=== PATIENT | female | born 1990 | race Caucasian/White ===

== ENCOUNTER 2017-02-06 00:25 | Emergency (ER) | payer BC, MEDICAID ==
[~2017-02-06] VITALS: Ht 162.6 cm; Wt 104.1 kg
[2017-02-06 00:25] VITALS: Ht 162.6 cm; Wt 104.1 kg
--- OUTSIDE RECORDS SUMMARY | 2017-02-06 00:30 | XMS REPORT | Referral Summary ---
Author Author [facility] Organization [facility] Address Unknown Phone Unavailable Care Team Providers Care Drill Runner Helper Name Role Phone No PCP, Pt States Primary Care Physician [phone] Encounter VC Date(s): 10/12/16 - 10/12/[address] [facility] [address], [place] [address] Discharge Diagnosis: Leukocytosis Discharge Diagnosis: Cough Discharge Disposition: 01-Home or Self Care Attending Physician: Duncan Alva MD Admitting Physician: Duncan Alva MD Referring Physician: Self Referred, X Vital Signs Most recent to 1 oldest [Reference Range]: Temperature Oral 36.3 degC [35.8-37.3 degC] (10/12/16 2:19 PM) Peripheral Pulse 103 bpm Rate [60-100 bpm] *HI* (10/12/16 2:19 PM) Respiratory Rate 18 br/min [14-20 br/min] (10/12/16 2:19 PM) Blood Pressure 112/73 mmHg [90-140/60-90 mmHg] (10/12/16 2:19 PM) SpO2 98 % (10/12/16 2:19 PM) Problem List Condition Effective Dates Status Health Status Informant Morbid Active patient obesity(Confirmed) (Confirmed) 04/13/16 Active Tobacco use during Active (Confirmed) Tobacco Active patient user(Confirmed) Allergies, Adverse Reactions, Alerts Substance Reaction Severity Status penicillin Active Medications Diflucan 150 mg oral tablet 150 mg 1 tabs, Oral, qWeek, # 2 tabs, 0 Refill(s), 1 tabs Oral qWeek Start Date: 09/19/16 Stop Date: 09/20/17 Status: Ordered Multivitamins with Vitamin B Complex, Vitamin C, Minerals and L- Methylfolate oral capsule 1 caps, Oral, Daily, # 30 caps, 0 Refill(s) Start Date: 09/19/16 Status: Ordered Results Hematology Most recent to 1 oldest [Reference Range]: WBC [4.8-10.8 15.6 10*3/uL 10*3/uL] *HI* (10/12/16 3:11 PM) RBC [4.00-5.20] 4.33 (10/12/16 3:11 PM) Hgb [12.0-16.0 12.7 gm/dL gm/dL] (10/12/16 3:11 PM) Hct [37.0-47.0 %] 36.9 % *LOW* (10/12/16 3:11 PM) MCV [82.0-99.0 fL] 85.2 fL (10/12/16 3:11 PM) MCH [27.0-32.0 pg] 29.3 pg (10/12/16 3:11 PM) MCHC [32.0-36.0 34.4 gm/dL gm/dL] (10/12/16 3:11 PM) RDW [11.5-14.5 %] 13.8 % (10/12/16 3:11 PM) Platelet [150-400 314 10*3/uL 10*3/uL] (10/12/16 3:11 PM) MPV [9.4-12.4 fL] 11.2 fL (10/12/16 3:11 PM) Immature 0.4 % Granulocytes (10/12/16 3:11 PM) [0.0-1.0 %] Neutrophils [51-75 75 % %] (10/12/16 3:11 PM) Lymphocytes [20-46 15 % %] *LOW* (10/12/16 3:11 PM) Monocytes [4-11 %] 7 % (10/12/16 3:11 PM) Eosinophils [0-4 %] 2 % (10/12/16 3:11 PM) Basophils [0-2 %] 0 % (10/12/16 3:11 PM) Neutro Absolute 11.73 [1.90-7.00] *HI* (10/12/16 3:11 PM) Lymph Absolute 2.35 [0.80-3.30] (10/12/16 3:11 PM) [place] Absolute 1.14 [0.30-1.00] *HI* (10/12/16 3:11 PM) Eos Absolute 0.32 [0.00-0.50] (10/12/16 3:11 PM) Baso Absolute 0.02 [0.00-0.20] (10/12/16 3:11 PM) Chemistry Most recent to 1 oldest [Reference Range]: Sodium Lvl [136-144 137 mEq/L mEq/L] (10/12/16 3:11 PM) Potassium Lvl 3.7 mEq/L [3.6-5.1 mEq/L] (10/12/16 3:11 PM) Chloride [99-109 105 mEq/L mEq/L] (10/12/16 3:11 PM) CO2 [22-32 mEq/L] 23 mEq/L (10/12/16 3:11 PM) AGAP [3-20] 9 (10/12/16 3:11 PM) BUN [4-20 mg/dL] 9 mg/dL (10/12/16 3:11 PM) Glucose Lvl [70-100 103 mg/dL mg/dL] *HI* (10/12/16 3:11 PM) Creatinine Lvl 0.56 mg/dL [0.44-1.03 mg/dL] (10/12/16 3:11 PM) eGFR [>60] >60 1 (10/12/16 3:11 PM) Calcium Lvl 8.7 mg/dL [8.6-10.0 mg/dL] (10/12/16 3:11 PM) 1Result Comment: Multiply eGFR results by 1.21 for race. Urinalysis Most recent to 1 oldest [Reference Range]: UA Color Jeny *ABN* (10/12/16 3:56 PM) UA Appear Sl Cloudy (10/12/16 3:56 PM) UA pH [5.0-8.0] 5.0 (10/12/16 3:56 PM) UA Leuk Est Negative [Negative] (10/12/16 3:56 PM) UA Nitrite Negative [Negative] (10/12/16 3:56 PM) UA Protein Pos 1+ [Negative] *ABN* (10/12/16 3:56 PM) UA Glucose Negative [Negative] (10/12/16 3:56 PM) UA Ketones Negative [Negative] (10/12/16 3:56 PM) UA Urobilinogen Negative [<1.0] (10/12/16 3:56 PM) UA Bili [Negative] Negative (10/12/16 3:56 PM) UA Blood [Negative] Negative (10/12/16 3:56 PM) UA Spec Grav 1.030 [1.003-1.030] (10/12/16 3:56 PM) Type Clean Catch (10/12/16 3:56 PM) UA WBC [0-4] 0-2 (10/12/16 3:56 PM) UA RBC [0-2] 0-2 (10/12/16 3:56 PM) Epithelial Cells 2-5 (10/12/16 3:56 PM) UA Bacteria None Seen (10/12/16 3:56 PM) UA Mucous Present (10/12/16 3:56 PM) Microbiology Reports TEST: Rapid Strep Group A STATUS: Auth (Verified) BODY SITE: SOURCE: Throat COLLECTED DATE/TIME: 10/12/16 3:10 PM Rapid Strep Group A Negative Immunizations No data available for this section Procedures Procedure Date Related Diagnosis Body Site Cholecystectomy Laparoscopic1 09/20/15 Tonsillectomy 1auto-populated from documented surgical case Social History Social History Type Response Smoking Status Former smoker; Type: Cigarettes; Number of years: 8 Assessment and Plan No data available for this section
--- OUTSIDE RECORDS SUMMARY | 2017-02-06 00:30 | XMS REPORT | Continuity of Care Document ---
Author Author [facility] Organization [facility] Address Unknown Phone Unavailable Allergies Active Description Code Type Severity Reaction Onset Reported/Identified Relationship to Patient Clinical Status Yes amoxicillin amoxicillin Drug Allergy Severe RASH 12/26/2016 Yes Penicillins Penicillins Drug Allergy Severe RASH 12/26/2016 Medications Problems Procedures Results Test Result Range CBC - 01/08/17 19:50 MEAN CELL HGB 27.5 pg 27.0-33.0 MEAN CELL HGB CONCENTRATION 34.2 g/dL 32.0-37.0 MEAN CELL VOLUME 80.6 fl 80.0-100.0 RED BLOOD CELL 4.43 m/cumm 4.00-6.00 RED CELL DISTRIBUTION WIDTH 13.7 % 11.0- 15.6 WHITE BLOOD CELL 14.4 k/cumm 5.0-10.0 HEMOGLOBIN 12.2 gm/dL 12.0-16.0 HEMATOCRIT 35.7 % 37.0-47.0 PLATELET COUNT 285 k/cumm 150-400 CORD ARTERIAL BLOOD GAS - 01/09/17 18:40 ARTERIAL CORD BLD BASE EXCESS -4.5 meq/L -7.6-1.3 COMMENT ARTERIAL ARTERIAL CORD BICARBONATE 24.4 meq/L 16.0 -27.1 ARTERIAL CORD BLOOD PCO2 60 mm Hg 32-69 ARTERIAL CORD BLOOD PH 7.23 7.14-7.40 ARTERIAL CORD BLOOD PO2 10.2 mm Hg 8-33 ARTERIAL CORD BLOOD O2 SAT < 15 % 5-59 CORD VENOUS BLOOD GAS - 01/09/17 18:40 VENOUS CORD BLOOD BASE EXCESS -1.8 meq/L -5.8-0.7 COMMENT VENOUS VENOUS CORD BLOOD HCO3 24.1 meq/L 17.4- 25.4 VENOUS CORD BLOOD PCO2 45 mm Hg 28-57 VENOUS CORD BLOOD PH 7.35 7.23-7.46 VENOUS CORD BLOOD PO2 24 mm Hg 15-42 VENOUS CORD BLOOD O2 SAT 43 % 14-75 HEMOGLOBIN - 01/09/17 23:20 MEAN CELL VOLUME 81.1 fl 80.0-100.0 HEMOGLOBIN 10.8 gm/dL 12.0-16.0 HEMOGLOBIN - 01/10/17 11:51 MEAN CELL VOLUME 81.8 fl 80.0-100.0 HEMOGLOBIN 10.5 gm/dL 12.0-16.0 Encounters ACCT No. Visit Date/Time Discharge Status Pt. Type Provider Facility Loc./Unit Complaint [id number] 01/05/2017 17:01:00 2016 17:45:00 DIS Emergency Julio Cesar MAYFIELD, [facility] [id number] [id number] 12/31/2016 09:34:00 2016 11:03:00 DIS Emergency Julio Cesar MAYFIELD, [facility] [id number] [id number] 12/26/2016 16:47:00 2016 20:35:00 DIS Emergency Julio Cesar MAYFIELD, [facility] W.[email or web address] [id number] 07/20/2015 08:44:00 2014 08:44:00 DIS Outpatient Yolanda MAYFIELD, Luis Antonio Hollis [facility] WKdKEVIN [id number] 01/08/2017 14:54:00 PEN Preadmit Julio Cesar MAYFIELD, [facility] [id number]
--- OUTSIDE RECORDS SUMMARY | 2017-02-06 00:30 | XMS REPORT | Referral Summary ---
Author Organization Unknown Address Unknown Phone Unavailable Care Team Providers Care Natural Gas Treating Unit Operator Name Role Phone No PCP, States Primary Care Physician [phone] Encounter VC Date(s): 01/13/15 - 01/13/15 [facility], [place], Family [address] [place] [address] Discharge Disposition: Home or Self Care Attending Physician: Domo Davis DO Admitting Physician: Domo Davis DO Vital Signs Most recent to 1 oldest [Reference Range]: Temperature Tympanic 36.5 degC [36.6-38.1 degC] *LOW* (01/13/15 8:28 AM) Peripheral Pulse 58 bpm Rate [60-100 bpm] *LOW* (01/13/15 8:28 AM) Blood Pressure 131/80 mmHg [90-140/60-90 mmHg] (01/13/15 8:28 AM) Problem List Condition Effective Dates Status Health Status Informant Tobacco Active patient user(Confirmed) Allergies, Adverse Reactions, Alerts No Known Medication Allergies Medications meloxicam 15 mg oral tablet 1 tabs, Oral, Daily, # 30 tabs, 0 Refill(s), Pharmacy: [facility], 1 tabs Oral Daily,x30 days Start Date: 01/13/15 Stop Date: 02/12/15 Status: Ordered Results No data available for this section Immunizations No data available for this section Procedures No data available for this section Social History Social History Type Response Smoking Status Former smoker; Type: Cigarettes; Number of years: 8 Assessment and Plan Extracted from: Title: Office Visit Note Author: Domo Davis DO Date: 01/13/15 Assessment/Plan Ordered: Office Visit Level 3 [place] [address] Injury of the fingers of right hand: 1. Imaging of the right hand and fingers was negative for any acute fractures. 2. Meloxicam 15 mg daily. 3. Follow-up in 2 weeks if no improvement.
--- OUTSIDE RECORDS SUMMARY | 2017-02-06 00:30 | XMS REPORT | Referral Summary ---
Author Author [facility] Organization [facility] Address Unknown Phone Unavailable Care Team Providers Care Drapery Examiner Name Role Phone No PCP, Pt States Primary Care Physician [phone] Encounter VC Date(s): 09/19/16 - 09/19/[address] [facility] [address] [place], [place] [address] Discharge Diagnosis: Urinary tract infection Discharge Diagnosis: Yeast infection Discharge Disposition: 01-Home or Self Care Attending Physician: Tana Harrell MD Admitting Physician: Tana Harrell MD Vital Signs Most recent to 1 oldest [Reference Range]: Temperature Oral 36.8 degC [35.8-37.3 degC] (09/19/16 11:50 AM) Heart Rate Monitored 95 bpm [60-100 bpm] (09/19/16 11:50 AM) Respiratory Rate 20 br/min [14-20 br/min] (09/19/16 11:50 AM) Blood Pressure 121/71 mmHg [90-140/60-90 mmHg] (09/19/16 11:50 AM) Problem List Condition Effective Dates Status [...] Date: 09/19/16 Stop Date: 09/20/17 Status: Ordered Keflex 500 mg oral capsule 500 mg 1 caps, Oral, q12hr, X 7 days, # 14 caps, 0 Refill(s), 1 caps Oral q12hr, x7 days Start Date: 09/19/16 Stop Date: 12/29/16 Status: Ordered Multivitamins with Vitamin B Complex, Vitamin C, Minerals and L- Methylfolate oral capsule 1 caps, Oral, Daily, # 30 caps, 0 Refill(s) Start Date: 09/19/16 Status: Ordered Results Urinalysis Most recent to 1 oldest [Reference Range]: UA Color Jeny *ABN* (09/19/16 12:24 PM) UA Appear Cloudy *ABN* (09/19/16 12:24 PM) UA pH [5.0-8.0] 6.0 (09/19/16 12:24 PM) UA Leuk Est Pos 3+ [Negative] *ABN* (09/19/16 12:24 PM) UA Nitrite Negative [Negative] (09/19/16 12:24 PM) UA Protein Pos 2+ [Negative] *ABN* (09/19/16 12:24 PM) UA Glucose Negative [Negative] (09/19/16 12:24 PM) UA Ketones Negative [Negative] (09/19/16 12:24 PM) UA Urobilinogen 2.0 mg/dL [<1.0 mg/dL] *ABN* (09/19/16 12:24 PM) UA Bili [Negative] Negative (09/19/16 12:24 PM) UA Blood [Negative] Negative (09/19/16 12:24 PM) UA Spec Grav 1.030 [1.003-1.030] (09/19/16 12:24 PM) Type Clean Catch (09/19/16 12:24 PM) UA WBC [0-4] 10-20 *ABN* (09/19/16 12:24 PM) UA RBC [0-2] 0-2 (09/19/16 12:24 PM) Epithelial Cells 10-20 (09/19/16 12:24 PM) UA Bacteria Moderate *ABN* (09/19/16 12:24 PM) UA Yeast W/Hyphae *ABN* (09/19/16 12:24 PM) UA Mucous Present (09/19/16 12:24 PM) Microbiology Reports TEST: Affirm Vaginitis Panel STATUS: Auth (Verified) BODY SITE: SOURCE: Cervix/Vaginal COLLECTED DATE/TIME: 09/19/16 12:24 PM Affirm Vaginitis Panel Negative for Trichomonas vaginalis Negative for Gardnerella vaginalis Positive for Patsy species Immunizations No data available for this section Procedures Procedure Date Related Diagnosis Body Site Cholecystectomy Laparoscopic1 09/20/15 Tonsillectomy 1auto-populated from documented surgical case Social History Social History Type Response Smoking Status Former smoker; Type: Cigarettes; Number of years: 8 Assessment and Plan No data available for this section
--- OUTSIDE RECORDS SUMMARY | 2017-02-06 00:30 | XMS REPORT | Referral Summary ---
Author Author [facility] Organization [facility] Address Unknown Phone Unavailable Care Team Providers Care Loading Unit Operator Powder Charging Name Role Phone No PCP, States Primary Care Physician [phone] Encounter VC Date(s): 02/15/15 - 02/15/15 [facility] [address] [place] [address] [place] [address] Discharge Diagnosis: Acute bronchitis Discharge Diagnosis: Acute sinusitis Discharge Disposition: 01-Home or Self Care Attending Physician: Medardo Milton MD Admitting Physician: Medardo Milton MD Vital Signs Most recent to 1 oldest [Reference Range]: Temperature Tympanic 37.3 degC [36.6-38.1 degC] (02/15/15 3:03 PM) Peripheral Pulse 98 bpm Rate [60-100 bpm] (02/15/15 3:03 PM) SpO2 99 % (02/15/15 3:03 PM) Problem List Condition Effective Dates Status Health Status Informant Morbid Active patient obesity(Confirmed) Tobacco Active patient user(Confirmed) Allergies, Adverse Reactions, Alerts Substance Reaction Severity Status penicillin Active Medications No Known Medications Results No data available for this section Immunizations No data available for this section Procedures Procedure Date Related Diagnosis Body Site Tonsillectomy Social History Social History Type Response Smoking Status Former smoker; Type: Cigarettes; Number of years: 8 Assessment and Plan Extracted from: Title: Ambulatory Patient Education Author: Medardo Milton MD Date: Allergy Sinusitis Sinusitis is redness, soreness, and swelling (inflammation ) of the paranasal sinuses. Paranasal sinuses are air pockets within the bones of your face ( beneath the eyes, the middle of the forehead, or above the eyes). In healthy paranasal sinuses, mucus is able to drain out, and air is able to circulate through them by way of your nose. However, when your paranasal sinuses are inflamed, mucus and air can become trapped. This can allow bacteria and other germs to grow and cause infection. Sinusitis can develop quickly and last only a short time (acute ) or continue over a long period (chronic ). Sinusitis that lasts for more than 12 weeks is considered chronic. CAUSES Causes of sinusitis include: Allergies. Structural abnormalities, such as displacement of the cartilage that separates your nostrils (deviated septum ), which can decrease the air flow through your nose and sinuses and affect sinus drainage. Functional abnormalities, such as when the small hairs (cilia ) that line your sinuses and help remove mucus do not work properly or are not present. SYMPTOMS Symptoms of acute and chronic sinusitis are the same. The primary symptoms are pain and pressure around the affected sinuses. Other symptoms include: Upper toothache. Earache. Headache. Bad breath. Decreased sense of smell and taste. A cough, which worsens when you are lying flat. Fatigue. Fever. Thick drainage from your nose, which often is green and may contain pus ( purulent ). Swelling and warmth over the affected sinuses. DIAGNOSIS Your caregiver will perform a physical exam. During the exam, your caregiver may : Look in your nose for signs of abnormal growths in your nostrils (nasal polyps) . Tap over the affected sinus to check for signs of infection. View the inside of your sinuses (endoscopy ) with a special imaging device with a light attached (endoscope ), which is inserted into your sinuses. If your caregiver suspects that you have chronic sinusitis, one or more of the following tests may be recommended: Allergy tests. Nasal cultureA sample of mucus is taken from your nose and sent to a lab and screened for bacteria. Nasal cytologyA sample of mucus is taken from your nose and examined by your caregiver to determine if your sinusitis is related to an allergy. TREATMENT Most cases of acute sinusitis are related to a viral infection and will resolve on their own within 10 days. Sometimes medicines are prescribed to help relieve symptoms (pain medicine, decongestants, nasal steroid sprays, or saline sprays) . However, for sinusitis related to a bacterial infection, your caregiver will prescribe antibiotic medicines. These are medicines that will help kill the bacteria causing the infection. Rarely, sinusitis is caused by a fungal infection. In theses cases, your caregiver will prescribe antifungal medicine. For some cases of chronic sinusitis, surgery is needed. Generally, these are cases in which sinusitis recurs more than 3 times per year, despite other treatments. HOME CARE INSTRUCTIONS Drink plenty of water. Water helps thin the mucus so your sinuses can drain more easily. Use a humidifier. Inhale steam 3 to 4 times a day (for example, sit in the bathroom with the shower running). Apply a warm, moist washcloth to your face 3 to 4 times a day, or as directed by your caregiver. Use saline nasal sprays to help moisten and clean your sinuses. Take [id number] or prescription medicines for pain, discomfort, or fever only as directed by your caregiver. SEEK IMMEDIATE MEDICAL CARE IF: You have increasing pain or severe headaches. You have nausea, vomiting, or drowsiness. You have swelling around your face. You have vision problems. You have a stiff neck. You have difficulty breathing. MAKE SURE YOU: Understand these instructions. Will watch your condition. Will get help right away if you are not doing well or get worse. Document Released: 09/15/2006 Document Revised: 12/07/2012 Document Reviewed: [facility] [place] Patient Information 2014 [employer]. Follow Up With: Where: When: Pt States No PCP [address] [place] [address] [facility] (1) Within 3 to 5 days, only if needed Comments: Extracted from: Title: Office Visit Note Author: Medardo Milton MD Date: 02/15/15 Assessment/Plan Acute bronchitis She will be placed on Robitussin-AC 1 teaspoon full every 4 hours as needed for Cough. Ordered: Office Visit Level 4 Est 69256 Acute sinusitis She will be placed on Zithromax 500 milligrams daily 5 days. She will return for recheck as needed. Ordered: Office Visit Level 4 Est 55632 Orders: azithromycin, 500 mg 1 tabs, Oral, Daily, X 5 days, # 5 tabs, 0 Refill (s), Pharmacy: [id number], 1 tabs Oral Daily,x5 days codeine-guaiFENesin, 5 mL, Oral, q4hr, as needed for cough, X 7 days, # 210 mL , 0 Refill(s)
--- OUTSIDE RECORDS SUMMARY | 2017-02-06 00:30 | XMS REPORT | Referral Summary ---
Author Author [facility] Organization [facility] Address Unknown Phone Unavailable Care Team Providers Care Provider Network Mgr Name Role Phone No PCP, Pt States Primary Care Physician [phone] Encounter VC Date(s): 09/20/15 - 09/20/15 [facility] [address] [place] [address] [phone] Discharge Disposition: 01-Home or Self Care Attending Physician: Vineet Wallace MD Admitting Physician: Vineet Wallace MD Vital Signs Most recent to 1 oldest [Reference Range]: Temperature Skin 36.6 degC [36-37 degC] (09/20/15 2:00 PM) Temperature Temporal 36.8 degC Artery [36.3-37.8 (09/20/15 2:20 PM) degC] Peripheral Pulse 97 bpm Rate [60-100 bpm] (09/20/15 4:05 PM) Heart Rate Monitored 71 bpm [60-100 bpm] (09/20/15 2:20 PM) Respiratory Rate 16 br/min [14-20 br/min] (09/20/15 4:05 PM) Blood Pressure 103/59 mmHg [90-140/60-90 mmHg] (09/20/15 4:05 PM) Mean Arterial 70 mmHg Pressure, Cuff (09/20/15 2:20 PM) SpO2 94 % (09/20/15 2:20 PM) Problem List Condition Effective Dates Status Health Status Informant Morbid Active patient obesity(Confirmed) Tobacco Active patient user(Confirmed) Allergies, Adverse Reactions, Alerts Substance Reaction Severity Status penicillin Active Medications Colace 100 mg oral capsule 100 mg 1 caps, Oral, BID, 0 Refill(s) Start Date: 09/20/15 Status: Ordered HYDROcodone-acetaminophen 5 mg-325 mg oral tablet 2 tabs, Oral, q4hr, Pain, 0 Refill(s) Start Date: 09/20/15 Status: Ordered Results Hematology Most recent to 1 oldest [Reference Range]: WBC [4.8-10.8 9.8 10*3/uL 10*3/uL] (09/20/15 10:08 AM) RBC [4.00-5.20] 4.87 (09/20/15 10:08 AM) Hgb [12.0-16.0 13.1 gm/dL gm/dL] (09/20/15 10:08 AM) Hct [37.0-47.0 %] 38.7 % (09/20/15 10:08 AM) MCV [82.0-99.0 fL] 79.5 fL *LOW* (09/20/15 10:08 AM) MCH [27.0-32.0 pg] 26.9 pg *LOW* (09/20/15 10:08 AM) MCHC [32.0-36.0 33.9 gm/dL gm/dL] (09/20/15 10:08 AM) RDW [11.5-14.5 %] 13.1 % (09/20/15 10:08 AM) Platelet [150-400 339 10*3/uL 10*3/uL] (09/20/15 10:08 AM) MPV [9.4-12.4 fL] 10.6 fL (09/20/15 10:08 AM) Immature 0.2 % Granulocytes (09/20/15 10:08 AM) [0.0-1.0 %] Neutrophils [51-75 61 % %] (09/20/15 10:08 AM) Lymphocytes [20-46 27 % %] (09/20/15 10:08 AM) Monocytes [4-11 %] 8 % (09/20/15 10:08 AM) Eosinophils [0-4 %] 4 % (09/20/15 10:08 AM) Basophils [0-2 %] 0 % (09/20/15 10:08 AM) Neutro Absolute 6.03 10*3 [1.90-7.00 10*3] (09/20/15 10:08 AM) Lymph Absolute 2.64 10*3 [0.80-3.30 10*3] (09/20/15 10:08 AM) [place] Absolute 0.80 10*3 [0.30-1.00 10*3] (09/20/15 10:08 AM) Eos Absolute 0.34 10*3 [0.00-0.50 10*3] (09/20/15 10:08 AM) Baso Absolute 0.02 10*3 [0.00-0.20 10*3] (09/20/15 10:08 AM) Nucleated RBC 0.0 /100 WBC Automated [0 /100 (09/20/15 10:08 AM) WBC] Chemistry Most recent to 1 oldest [Reference Range]: Sodium Lvl [136-144 138 mEq/L mEq/L] (09/20/15 10:08 AM) Potassium Lvl 4.1 mEq/L [3.6-5.1 mEq/L] (09/20/15 10:08 AM) Chloride [99-109 108 mEq/L mEq/L] (09/20/15 10:08 AM) CO2 [22-32 mEq/L] 23 mEq/L (09/20/15 10:08 AM) AGAP [3-20] 7 (09/20/15 10:08 AM) BUN [4-20 mg/dL] 14 mg/dL (09/20/15 10:08 AM) Glucose Lvl [70-100 100 mg/dL mg/dL] (09/20/15 10:08 AM) Creatinine Lvl 0.78 mg/dL [0.44-1.03 mg/dL] (09/20/15 10:08 AM) eGFR [>60] >60 1 (09/20/15 10:08 AM) Calcium Lvl 9.0 mg/dL [8.6-10.0 mg/dL] (09/20/15 10:08 AM) Albumin Lvl [3.5-4.8 3.7 gm/dL gm/dL] (09/20/15 10:08 AM) Total Protein 7.1 gm/dL [6.1-7.9 gm/dL] (09/20/15 10:08 AM) Globulin [1.9-4.3 3.4 gm/dL gm/dL] (09/20/15 10:08 AM) ALT [14-54 U/L] 21 U/L (09/20/15 10:08 AM) AST [15-41 U/L] 15 U/L (09/20/15 10:08 AM) Alk Phos [26-104 73 U/L U/L] (09/20/15 10:08 AM) Bili Total [0.2-1.2 0.4 mg/dL 2 mg/dL] (09/20/15 10:08 AM) Screen, Negative Urine NPT (09/20/15 10:18 AM) Blood Glucose, 91 mg/dL Capillary [70-100 (09/20/15 10:07 AM) mg/dL] 1Result Comment: Multiply eGFR results by 1.21 for race. 2Result Comment: Naproxen, specifically the metabolite O-desmethylnaproxen, may cause spurious elevation in Total Bilirubin levels. Blood Bank Results Most recent to 1 oldest [Reference Range]: ABO/Rh A POS (09/20/15 10:08 AM) Antibody Screen Tube NEG (09/20/15 10:08 AM) Immunizations No data available for this section Procedures Procedure Date Related Diagnosis Body Site Cholecystectomy Laparoscopic1 09/20/15 Tonsillectomy 1auto-populated from documented surgical case Social History Social History Type Response Smoking Status Former smoker; Type: Cigarettes; Number of years: 8 Assessment and Plan No data available for this section
--- NOTE | 2017-02-06 00:37 | ERPDOC ---
Departure Disposition Decision Date: February 06, 2017 Disposition Decision Time: 02:59 Disposition: 01 DISCHARGED HOME, SELF-CARE Impression Impression Impression: Primary Impression: Ruptured ovarian cyst Severity: Severe Condition: Improved Seen By: Physician only Patient Instructions: Ovarian Cyst (ED) Problems/Meds/Labs Reviewed?: Yes Medications reviewed and manag: Yes Additional Instructions: Use ibuprofen up to 600 mg 4 times daily or Aleve 2 tablets twice daily for baseline pain control [place] 5 mg one tablet every 6 hours as needed for pain See your primary doctor next week if not improving Follow up care ordered?: Yes Mental Status: Alert Scripts Hydrocodone/Acetaminophen ([place] 5-325 Tablet) 5-325 Tablet 1 TAB PO QID Y for PAIN, #15 Prov: CODEY COLLAZO MD 02/06/17 HPI - Abdominal Pain General Stated Complaint: ABD PAIN Time Seen by Provider: 00:27 Source: patient, EMS History/Exam Limitations: no limitations HPI - Abdominal Pain Initial Comments Moderate to severe RLQ pain with radiation across the low abdomen. Ongoing for 8 -9 hours, constant, unrelenting. No dysuria, constipation, diarrhea, nausea, or vomiting. Patient denies fevers or chills, or any respiratory symptoms. Patient is 6 weeks low transverse , without complication. Occurred At: home Onset: Rapid Duration: 6-12 hrs Quality: sharpness Location: RLQ Radiation: suprapubic Associated Symptoms: DENIES: back pain, chest pain, diaphoresis, fatigue, fever /chills, headache, heartburn, nausea/vomiting, rash, shortness of breath, swelling/mass in abdomen, syncope, weakness Hx of Similar Symptoms: No Allergies: Coded Allergies: No Known Allergies (Unverified , 02/06/17) Past History Surgical History General: gallbladder Reproductive/: Social History Smoking Status: Never smoker Does patient use chewing tobac: No Second Hand Exposure: No Substance Use Type: does not use Alcohol Intake: none Record Review Pertinent history updated: Yes Review of Systems Constitutional Constitutional: DENIES: appetite decrease, appetite increase, chills, dizziness , fever, weakness ENMT Ears: DENIES: pain Hearing: DENIES: hearing loss, tinnitus Balance: DENIES: vertigo Mouth/Throat: DENIES: change in swallowing, change in voice, hoarsness, painful swallowing, sore throat Cardiovascular Cardiac: DENIES: chest pain, dyspnea on exertion Rhythm/Rate: DENIES: irregular beat, palpitations, tachycardia Vascular: DENIES: pedal edema Pulmonary Respiratory: DENIES: cough, dyspnea, pleuritic chest pain GI Upper Abdomen: DENIES: dysphagia, food intolerances, heartburn/indigestion, hematemesis, nausea, pain, vomiting Lower Abdomen: pain, DENIES: blood in stool, katerin-colored stools, constipation , diarrhea, melena, painful BM General: DENIES: burning, dysuria, frequency, pain, urgency Musculoskeletal General: DENIES: cramps, joint pain, joint swelling, pain, weakness Integumentary Skin: DENIES: rash, sores Neurological General: DENIES: headache, numbness, tingling, vertigo, weakness Psychiatric Psychiatric: DENIES: anxiety, depression, nervousness Physical Exam General General Nourishment: well nourished, well developed, appears stated age General Body Habitus: well groomed Vitals and Pain First Documented Vital Signs Date Time Temp Pulse Resp B/P Pulse Ox O2 Delivery O2 Flow Rate FiO2 02/06/17 00:25 97.8 59 16 114/58 100 Room Air Weight: Kilograms: Height (feet): Height (inches): Triage Pain Scale: RN VS reviewed by Provider: Yes Normal Exams: Head: Normocephalic w/o trauma Eyes: Pupils are PERRLA w/ EOMI, No scleral icterus, irritation, or foreign bodies noted ENMT: No facial trauma, nasal exudates, pharyngeal erythema, or exudates are noted Neck: Full range of motion, without adenopathy, JVD, bruits or thyromegaly Chest/Resp: Clear all browne, with good airflow, and symmetry bilaterally CV: Regular rate and rhythm, without murmur or gallop, Pulses 2+ all extremities, capillary refill, <2 seconds all ext., no pedal edema noted Lymphatic: No lymphadenopathy, or lymphedema noted Musculoskeletal: No tenderness, or deformity noted, good range of motion, all extremities Integumentary: No rashes, hives, or bruising noted, hair and nails, without abnormality Neurologic: Patient is alert, and oriented, cranial nerves, motor/sensory/ cerebellar, exams w/o gross deficits, to observation Psychiatric: Patient exhibits, appropriate attention, emotion and affect Abdomen (brief) Abdominal Brief: FOUND: bowel normo active x4, soft, tender (on her right lower quadrant tenderness, positive rebounding, mild suprapubic tenderness. Patient has no left or right referred tenderness), NOT FOUND: distended, hepatosplenomegaly, pulsatile mass Progress Results/Orders Orders Procedure Category Date Status Time Iv Lock (Ed Only) EDM 02/06/17 Transmitted 00:32 Cbc W/Auto LAB 02/06/17 Complete Diff-Reflex Manual Lipase LAB 02/06/17 Complete Ua, Dip Wreflex LAB 02/06/17 Complete Microsc & [employer] Engineer 00:32 LAB 02/06/17 Complete Qualitative, Urine 00:32 Ct Abd/Pelvis CT 02/06/17 Logged W/Contrast Only Ketorolac (Toradol) PHA 02/06/17 Complete 00:45 Hydromorphone PHA 02/06/17 Complete (Dilaudid) 00:45 Normal Saline (Normal PHA 02/06/17 Complete Saline Iv) 00:45 Cmp - Comprehensive LAB 02/06/17 Complete Metabolic Iohexol (Omnipaque) PHA 02/06/17 Complete 01:51 Normal Saline (Ns) PHA 02/06/17 Complete 01:52 Saline Flush (Iv PHA 02/06/17 Complete Flush) 01:52 Lab Results Laboratory Tests Test 02/06/17 01:03 White Blood Count 9.1T/MM3 Red Blood Count 4.40M/MM3 Hemoglobin 12.3GM/DL Hematocrit 36.4% Mean Corpuscular Volume 82.7UM3 Mean Corpuscular Hemoglobin 28.0UUG Mean Corpuscular Hemoglobin Concent 33.8GM/DL RDW Standard Deviation 38.6FL Platelet Count 267T/MM3 Mean Platelet Volume 11.5UM3 Immature Granulocyte % (Auto) 0.2% Neutrophils (%) (Auto) 50.0% Lymphocytes (%) (Auto) 36.8% Monocytes (%) (Auto) 5.4% Eosinophils (%) (Auto) 7.2% Basophils (%) (Auto) 0.4% Absolute Immature Granulocyte (auto 0.02T/MM3 Absolute Neutrophils (auto) 4.5T/MM3 Absolute Lymphocytes (auto) 3.3T/MM3 Absolute Monocytes (auto) 0.5T/MM3 Absolute Eosinophils (auto) 0.7T/MM3 Absolute Basophils (auto) 0.0T/MM3 Urine Collection Type Cleancatch-midstream Urine Color Yellow Urine Turbidity Clear Urine pH 6.0 Urine Specific Golden 1.025 Urine Protein Negative Urine Glucose (UA) Negative Urine Ketones Negative Urine Blood Negative Urine Nitrite Negative Urine Bilirubin Negative Urine Urobilinogen 0.2EU/DL Urine Leukocyte Esterase Negative Urinalysis Comment Microscopic not ind. Urine Test Negative Turbidity < 20 Sodium Level 146MEQ/L Potassium Level 3.9MEQ/L Chloride Level 109MEQ/L Carbon Dioxide Level 23MEQ/L Anion Gap 14MEQ/L Blood Urea Nitrogen 17.0MG/DL Creatinine 0.7MG/DL Glomerular Filtration Rate Calc 101 BUN/Creatinine Ratio 24RATIO Glucose Level 97MG/DL Calculated Osmolality 283MOSM/KG Calcium Level 9.1MG/DL Total Bilirubin 0.60MG/DL Icterus Index < 2 Aspartate Amino Transf (AST/SGOT) 35U/L Alanine Aminotransferase (ALT/SGPT) 46U/L Alkaline Phosphatase 93U/L Total Protein 6.9G/DL Albumin 4.1G/DL Globulin 2.8G/DL Albumin/Globulin Ratio 1.5RATIO Lipase 63U/L Chemistry Specimen Hemolysis 26 Medications Current ED Medications Ketorolac Tromethamine (Toradol) 30 mg O ONCE IV Last administered on 00:56; Start 02/06/17 at 00:45; Stop 02/06/17 at 00:46; Status DC Hydromorphone HCl 0.5 mg 0.5 mg O ONCE IV Last administered on 02/06/17 00:52 ; Start 02/06/17 at 00:45; Stop 02/06/17 at 00:46; Status DC Sodium Chloride (Normal Saline IV) 1,000 ml @ 0 mls/hr Q0M ONCE IV Last administered on 02/06/17 00:51; Start 02/06/17 at 00:45; Stop 02/06/17 at 00:46 ; Status DC Iohexol 1 bottle 1 bottle STK-MED ONCE .ROUTE ; Start 02/06/17 at 01:51; Stop at 01:52; Status DC Sodium Chloride (NS) 100 ml @ As Directed STK-MED ONCE .ROUTE ; Start 02/06/17 at 01:52; Stop 02/06/17 at 01:53; Status DC Sodium Chloride (Iv Flush) 10 ml STK-MED ONCE .ROUTE ; Start 02/06/17 at 01:52; Stop 02/06/17 at 01:53; Status DC Progress Progress Patient is given 1 L normal saline IV fluid bolus, Toradol 30 mg, Dilaudid 0.5 mg - to significant relief CT abdomen with pelvis - normal with the exception a small amount of fluid in the right pelvis, and a partially collapsed right ovarian cyst. CBC - n CMP/L - n UA/P - n CODEY COLLAZO MD February 06, 2017 00:37
[2017-02-06] MEDS ORDERED: NORMAL SALINE 1,000 ML IV ONE (00:45)
[2017-02-06] MEDS ORDERED: HYDROMORPHONE 2mg/ml INJECTION IV ONE (00:45)
[2017-02-06] MEDS ORDERED: KETOROLAC 30mg/ml INJECTION IV ONE (00:45)
--- NOTE | 2017-02-06 00:45 | NUR ---
BATHROOM PT UP TO BATHROOM TO VOID URINE SPECIMAN OBTAINED
--- OUTSIDE RECORDS SUMMARY | 2017-02-06 00:50 | XMS REPORT | Continuity of Care Document ---
Author Author [facility] Organization [facility] Address Unknown Phone Unavailable Allergies Active Description [...] Status Pt. Type Provider Facility Loc./Unit Complaint [id number] 01/05/2017 17:01:00 2016 17:45:00 DIS Emergency Julio Cesar [place], [facility] [id number] [id number] 12/31/2016 09:34:00 2016 11:03:00 DIS Emergency Julio Cesar [place], [facility] [id number] [id number] 12/26/2016 16:47:00 2016 20:35:00 DIS Emergency Julio Cesar [place], [facility] [id number] [id number] 07/20/2015 08:44:00 2014 08:44:00 DIS Outpatient Yolanda [place], Luis Antonio Hollis [facility] WKdKEVIN [id number] 01/08/2017 14:54:00 PEN Preadmit Julio Cesar [place], [facility] [id number]
--- NOTE | 2017-02-06 00:51 | NUR ---
IV FLUID #1 IV 1000CC NS STARTED AT 999CC/HR IV SITE WITHOUT REDNESS OR SWELLING
--- NOTE | 2017-02-06 00:52 | NUR ---
DILAUDID IV DILAUDID GIVEN FOR ABD PAIN
--- NOTE | 2017-02-06 00:56 | NUR ---
TORADOL IV TORADOL GIVEN FOR PAIN
[2017-02-06 01:10] LABS: BASOPHILS % (AUTO) 0.4 % (0-2); EOSINOPHILS # (AUTO) 0.7 T/MM3 (0-0.5); EOSINOPHILS % (AUTO) 7.2 % (0-4); HCT - HEMATOCRIT 36.4 % (36-46); HGB - HEMOGLOBIN 12.3 GM/DL (12-16); IMMATURE GRANULOCYTE # (AUTO) 0.02 T/MM3 (0.00-0.03); IMMATURE GRANULOCYTE % (AUTO) 0.2 % (0.0-0.5); LYMPHOCYTES # (AUTO) 3.3 T/MM3 (1-4.8); LYMPHOCYTES % (AUTO) 36.8 % (23-45); MEAN CORPUSCULAR HGB CONC(MCHC 33.8 GM/DL (31-37); MEAN CORPUSCULAR VOLUME 82.7 UM3 (80-100); MEAN PLATELET VOLUME 11.5 UM3 (9.4-12.4); MONOCYTES # (AUTO) 0.5 T/MM3 (0-0.8); MONOCYTES % (AUTO) 5.4 % (0-9.0); NEUTROPHILS #(AUTO)-ABSOLUTE 4.5 T/MM3 (1.8-7.7); WBC - WHITE BLOOD COUNT 9.1 T/MM3 (4.5-11.0)
[2017-02-06 01:11] LABS: BLOOD, URINE NEGATIVE (NEGATIVE); COLOR,URINE YELLOW (YELLOW); LEUKOCYTE ESTERASE ,URINE NEGATIVE (NEGATIVE); NITRITE,URINE NEGATIVE (NEGATIVE); UROBILINOGEN,URINE 0.2 EU/DL (NORMAL)
[2017-02-06 01:34] LABS: ANION GAP 14 MEQ/L (5-15); BUN/CREATININE RATIO 24 RATIO (6-26); CALCIUM 9.1 MG/DL (8.4-10.2); CHLORIDE 109 MEQ/L (98-107); CO2 - CARBON DIOXIDE 23 MEQ/L (22-30); CREATININE 0.7 MG/DL (0.7-1.2); GLOMERULAR FILTRATION RATE 101; GLUCOSE 97 MG/DL (65-110); POTASSIUM 3.9 MEQ/L (3.6-5); SODIUM 146 MEQ/L (134-144)
[2017-02-06 01:44] LABS: ALBUMIN 4.1 G/DL (3.5-5.0); ALBUMIN/GLOBULIN RATIO 1.5 RATIO (1.1-2.2); ALKALINE PHOSPHATASE 93 U/L (38-126); ALT (SGPT) 46 U/L (9-52); AST (SGOT) 35 U/L (14-36); TOTAL PROTEIN 6.9 G/DL (6.3-8.2)
--- NOTE | 2017-02-06 01:50 | NUR ---
STATUS PT STATES SHE FEELS BETTER RATES PAIN 5/10 DENIES NAUSEA
[2017-02-06] MEDS ORDERED: IOHEXOL 300 MG/ML 100ml INJECTION ONE (01:51)
[2017-02-06] MEDS ORDERED: SALINE FLUSH 10ml SYRINGE ONE (01:52)
[2017-02-06] MEDS ORDERED: NORMAL SALINE 100 ML ONE (01:52)
--- NOTE | 2017-02-06 01:56 | NUR ---
IV FLUID #1 IV 1000CC NS INFUSED IV SITE WITHOUT REDNESS OR SWELLING
--- NOTE | 2017-02-06 01:58 | NUR ---
CT PT TAKEN TO CT PER CART
--- NOTE | 2017-02-06 02:10 | NUR ---
ROOM PT RETURNED TO ROOM [address]
--- NOTE | 2017-02-06 02:26 | NUR ---
STATUS PT REPORTS SHE IS FEELING ALOT BETTER RATES PAIN 2/10 DENIES NAUSEA AMBULATORY TO BATHROOM TO VOID
[2017-02-06] MEDS ORDERED: NO ROUTINE MEDS (02:31)
[2017-02-06] MEDS ORDERED: HYDR-4246 PO (03:02)
[2017-02-06] MEDS ORDERED: HYDROCODONE/APAP 5/325 (PrePack) SENT HOME ONE (03:15)
--- NOTE | 2017-02-06 03:19 | NUR ---
INSTRUCTIONS DISMISSAL AND MEDICATION INSTRUCTIONS GIVEN TO PT DISP PREPACK NORCO WITH RX FOR SAME WITH INSTRUCTIONS PT VERBALIZED UNDERSTANDING OF ALL
[2017-02-06 03:22] VITALS: BP 104/53; PULSE 64; RESP 16; TEMP 97.8; O2SAT 99
--- NOTE | 2017-02-06 03:22 | NUR ---
DISMISS PT DISMISSED AMBULATORY FAMILY COMING TO GET PT
--- NOTE | 2017-02-06 12:16 | DI ---
EXAM: CT ABD/PELVIS W/CONTRAST ONLY COMPARISON: None available. HISTORY: ITS.REASON: RLQ pain with rebounding . Post 01/09/2017. Sharp constant pain for 10 hours. LOCATION OF DICTATION: [facility] [place] TECHNIQUE: Axial images were obtained from the domes of the diaphragms to the ischial tuberosities with administration of 100 mL Omnipaque 300 contrast. The study was reconstructed into thinner axial sections and in coronal and sagittal reformations. Study is reviewed in lung, soft tissue, bone and liver windows. The current CT scan was performed using radiation dose-reduction techniques. ABDOMEN AND PELVIS FINDINGS: LUNG BASES: Unremarkable. HEART: Unremarkable. No significant pericardial effusion. LIVER: Unremarkable. GALLBLADDER: The gallbladder is surgically absent with surgical clips seen in the gallbladder fossa. SPLEEN: Unremarkable. PANCREAS: Unremarkable. ADRENAL GLANDS: Unremarkable. AORTA/IVC/VASCULATURE: Unremarkable. LYMPH NODES: Small inguinal lymph nodes are noted but are not pathologically enlarged. No abdominal or pelvic lymphadenopathy is otherwise identified. GENITOURINARY: Unremarkable. No renal calculi or obstructive uropathy. The bladder and ureters appear unremarkable. There is a small amount of free fluid in the pelvis. The uterus is somewhat prominent and endometrial stripe measures 2 cm AP x 3.2 cm transverse. What is thought to represent the right ovary appears unremarkable. What is thought to represent the left ovary is unremarkable. BOWEL: Unremarkable. The stomach, duodenum, small bowel, and colon appear unremarkable. Scattered colonic diverticuli are noted without evidence for acute diverticulitis. There is a small to moderate amount of stool seen throughout the colon. The terminal ileum appears unremarkable. The appendix is well-visualized and appears unremarkable. ABDOMINAL/PELVIC WALL: Small umbilical defect without herniated loops of bowel. BONES: Unremarkable. IMPRESSION: 1. Small amount of free fluid in the pelvis. 2. Uterus is mildly prominent and endometrial stripe is somewhat thickened measuring 2 cm AP x 3.2 cm transverse. If this remains of clinical concern status post , a pelvic ultrasound can be considered. 3. Normal appendix. 4. Status post cholecystectomy without intra or intrahepatic ductal dilatation. NOTE: This study was reviewed via teleradiology by [facility] and a preliminary impression consistent with above findings was conveyed to the ordering clinician immediately after the exam. .
== END 2017-02-06 03:22 | disposition home or self-care (01) ==
LOC: ED 00:25
DX: N83.291 Other ovarian cyst, right side (principal)
CPT/HCPCS: 74177; 80053; 81003; 81025; 83690; 85025; 96361; 96374; 96375; 99284; J1170; J1885; J7030; J7050; Q9967